=== PATIENT | male | born 1985 | race Caucasian/White ===

== ENCOUNTER 2021-05-03 02:58 | Emergency (ER) | payer OTHER ==
[~2021-05-03] VITALS: Ht 180.3 cm
[2021-05-03 03:14] VITALS: BP 132/91
[2021-05-03] MEDS ORDERED: CEPH500C PO (03:27)
--- NOTE | 2021-05-03 03:27 | PHYS DOC ---
Past History Past Surgical History: Other Additional Past Surgical Histo: miniscus tear Adult General Chief Complaint Chief Complaint: TOE PROBLEM HPI HPI Patient is a 35-year-old male, otherwise healthy who presents with a blister on his left toe. States he is in the , went on a long hike and had a blister. States he is afraid it is infected. Denies any fevers, chest pain, shortness of breath, abdominal pain, nausea, vomiting. Denies any other injuries. Review of Systems Review of Systems Review of systems otherwise unremarkable except noted in HPI Allergies Allergies Allergies Coded Allergies Type Severity Reaction Last Updated Verified No Known Drug Allergies 05/03/21 No Physical Exam Physical Exam Constitutional: Well developed, well nourished, no acute distress, non-toxic appearance. [] Extremities: Mild tenderness and blister on lateral left great toe. Neurovascular exam intact. Neurologic: Alert and oriented X 3, no focal deficits noted. [] Psychologic: Affect normal, judgement normal, mood normal. [] Current Patient Data Vital Signs Vital Signs Date Time Temp Pulse Resp B/P (MAP) Pulse Ox O2 Delivery O2 Flow Rate FiO2 05/03/21 03:14 18 132/91 98 Room Air 05/03/21 03:13 98.0 60 EKG EKG [] Radiology/Procedures Radiology/Procedures [] Heart Score C/O Chest Pain: No Risk Factors: Risk Factors: DM, Current or recent (<one month) smoker, HTN, HLP, family history of CAD, obesity. Risk Scores: Risk Factors: DM, Current or recent (<one month) smoker, HTN, HLP, family history of CAD, obesity. Course & Med Decision Making Course & Med Decision Making Patient is a 35-year-old male who presents with a blister that has burst on his foot. Vital signs not concerning. Physical exam noted above. Denied need for pain medicine. Started on Keflex. Cleaned and bandaged. Gave wound care instructions. Advised to follow-up with primary care physician on Tuesday. Gave return precautions to the ED. Patient grateful, verbalized understanding agree with plan of discharge. [] Dragon Disclaimer Dragon Disclaimer This electronic medical record was generated, in whole or in part, using a voice recognition dictation system. Departure Departure: Impression: Primary Impression: Blister Disposition: HOME / SELF CARE / HOMELESS Condition: GOOD Referrals: NON,STAFF (PCP) JOHNSON BOBO MD Patient Instructions: Blisters Additional Instructions: Thank you for coming into the emergency department tonight and allowing us to take care of you. As discussed, keep the area clean, dry and bandaged. Please take your antibiotics as prescribed and until gone. You can use Tylenol, ibuprofen and ice as needed. Please follow-up with your primary care physician on Tuesday to update on ED visit. Please come back to the ED with new or concerning symptoms as discussed. Scripts Cephalexin (KEFLEX) 500 Mg Capsule 1 CAP PO TID for cellulitis for 10 Days, #30 CAP Prov: PATY CALZADA MD 05/03/21 PATY CALZADA MD May 03, 2021 03:27
[2021-05-03] MEDS ORDERED: CEPHALEXIN 250 MG CAPSULE PO ONE (03:30)
== END 2021-05-03 03:40 | disposition home or self-care (01) ==
LOC: ER 02:58
DX: S90.422A Blister (nonthermal), left great toe, initial encounter (principal); X58.XXXA Exposure to other specified factors, initial encounter; Y93.89 Activity, other specified; Y92.89 Other specified places as the place of occurrence of the external cause; Y99.0 Civilian activity done for income or pay
CPT/HCPCS: 99283